=== PATIENT | male | born 1995 | race Caucasian/White ===

== ENCOUNTER 2024-06-19 10:16 | Outpatient (AMB) | payer OTHER, SELFPAY ==
[2024-06-19 10:29] VITALS: BP 132/68; PULSE 75; O2SAT 98; BMI 32.0
--- NOTE | 2024-06-19 10:29 | MHC.OFFVIS ---
Vital Signs 06/19/24 10:29 Height 5 ft 8 in Weight 210 lb 8.663 oz BMI 32.0 BP 132/68 Blood Pressure Location Rt brachial Position Sitting Pulse 75 Pulse Source Pulse Oximeter Pulse Oximetry (%) 98 Oxygen Delivery Method Room Air Intake Visit Reasons: sleep apnea Video Specialist Required: No Protocol Officer: Protocol Officer offered & declined Accompanied by: Self / Same As Patient Allergies No Known Allergies Allergy (Verified 06/19/24 10:32) Medication List - Last Reconciled 06/19/24 by Marce Licea LPN albuterol sulfate 90 mcg/actuation (Ventolin HFA) 2 puffs inhalation Q6H PRN budesonide-formoterol 80-4.5 mcg/actuation (Symbicort) 2 puffs inhalation BID clonazepam (Klonopin) 1 mg PO BID HPI Comments Details: The patient is here for pulmonary evaluation. The patient is a 28-year-old gentleman presenting for evaluation of sleep apnea and also significant asthma. Apparently the patient has been having worsening daytime drowsiness. His [place] score is elevated at over 24. The patient is working on a regular basis and is felt some daytime drowsiness. In addition to that he went on vacation with family and they documented that he had severe apneic episodes and significant snoring. He has never had a sleep study. At this point the patient will be set up for home sleep study. As far as the asthma he states that he has had asthma all his life. Much worse when he was a child. He did have allergy testing noting him to have underlying seasonal allergies. We did look at blood work, his eosinophils have been stable for many years. The patient does have a dog. He has significant allergic to cats. 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 Recently was placed on Wixela but he has not been helping. He has still been using her rescue inhaler 3 to 4 times a day and typically running out very quickly on his inhaler. He does get relief when he uses the rescue inhaler. Will go ahead and switch him over to breast treated with the hope of maximizing respiratory therapy. The patient can also use his rescue inhaler as needed but hopefully he will need as much. He can also start Singulair. He will need PFTs in addition to on chest x-ray and also blood work to assess his allergies and also potential evaluation for biologics. Will follow-up after the studies are done and if any issues arise he will call the office for an earlier assessment. [facility] Medical History (Updated 06/19/24 @ 12:37 by Dejan Vidal MD) Dyspnea Asthma Allergies Review of Systems Const Reports daytime sleepiness, Reports difficulty sleeping and Reports stops breathing during sleep Eyes Reports no additional complaints ENT Reports nasal congestion and Reports nasal discharge Card Denies chest pain and Reports dyspnea on exertion Resp Reports cough, Reports dyspnea on exertion and Reports wheezing GI Reports no additional complaints Musc Reports no additional complaints Skin/Breast Denies rash Benny/Lymph Reports no additional complaints Aller/Immun Reports wheezing Physical Exam Vital Signs: Last Vital Signs Pulse 75 06/19/24 10:29 BP 132/68 06/19/24 10:29 Pulse Ox 98 06/19/24 10:29 Oxygen Delivery Method Room Air 06/19/24 10:29 BMI result Body Mass Index 32.0 Const General: comfortable HEENT Head: Yes normocephalic Neck Neck: Yes supple Chest Chest palpation & inspection: normal inspection of the chest Resp Effort & Inspection: normal respiratory effort Auscultation: wheezes and diminished lung sounds Cardio Heart sounds: S1 normal heart sound present and S2 normal heart sound present GI Palpation (GI): Soft to palpation Skin General skin exam: no rashes or lesions noted Extrem General: Yes no clubbing, cyanosis or edema Assessment & Plan Assessment & Plan (1) LISA (obstructive sleep apnea): Code(s): G47.33 - Obstructive sleep apnea (adult) (pediatric) Category: Medical (2) Asthma: Code(s): J45.909 - Unspecified asthma, uncomplicated Category: Medical Qualifiers: Asthma complication type: uncomplicated Asthma persistence: persistent Asthma severity: moderate Qualified Code(s): J45.40 - Moderate persistent asthma, uncomplicated (3) Allergies: Code(s): T78.40XA - Allergy, unspecified, initial encounter Category: Medical Qualifiers: Encounter type: initial encounter Qualified Code(s): T78.40XA - Allergy, unspecified, initial encounter (4) Dyspnea: Code(s): R06.00 - Dyspnea, unspecified Category: Medical Qualifiers: Dyspnea type: dyspnea on exertion Qualified Code(s): R06.09 - Other forms of dyspnea Plan Start Breztri Discontinue Wixela Short-acting beta agonist as needed Start Singulair Home PSG PFTs and chest x-ray Blood work and allergy testing Follow-up in 2-3 months Orders: Orders RT home sleep study Today G47.33 - Obstructive sleep apnea (adult) (pediatric) Resp Allergy Profile Region I Today J45.909 - Unspecified asthma, uncomplicated, R06.00 - Dyspnea, unspecified, R91.1 - Solitary pulmonary nodule, T78.40XA - Allergy, unspecified, initial encounter Immunoglobulin E Today J45.909 - Unspecified asthma, uncomplicated, R06.00 - Dyspnea, unspecified, T78.40XA - Allergy, unspecified, initial encounter Erythrocyte Sedimentation Rate Today J45.909 - Unspecified asthma, uncomplicated, R06.00 - Dyspnea, unspecified, T78.40XA - Allergy, unspecified, initial encounter XR chest 2V Today J45.909 - Unspecified asthma, uncomplicated, R06.00 - Dyspnea, unspecified, T78.40XA - Allergy, unspecified, initial encounter Complete Blood Count Auto Diff Today J45.909 - Unspecified asthma, uncomplicated, R06.00 - Dyspnea, unspecified, T78.40XA - Allergy, unspecified, initial encounter PFT pulmonary function test Today J45.909 - Unspecified asthma, uncomplicated, R06.00 - Dyspnea, unspecified, T78.40XA - Allergy, unspecified, initial encounter Medications: New lqwwamsqff-ycycezkl-jbgzizqxru 160-9-4.8 mcg/actuation (Breztri Aerosphere) 2 inhalations inhalation BID 10.7 grams 11RF 30 days albuterol sulfate 2.5 mg (3 mL) inhalation Q6H PRN 180 mL 11RF shortness of breath or wheezing 30 days montelukast (Singulair) 10 mg PO BEDTIME 30 tabs 11RF 30 days J45.909 - Unspecified asthma, uncomplicated Coding Level of Care Code New Pt Level 4 (62323) Diagnoses LISA (obstructive sleep apnea) G47.33 Moderate persistent asthma without complication J45.40 Asthma complication type: uncomplicated Asthma persistence: persistent Asthma severity: moderate Allergy, initial encounter T78.40XA Encounter type: initial encounter Dyspnea on exertion R06.09 Dyspnea type: dyspnea on exertion Time Spent (min) 40
== END 2024-06-19 10:58 | disposition home or self-care (01) ==
PROVIDERS: PCP Physician Assistant Medical; Visit Provider Hospitalist
DX: G47.33 Obstructive sleep apnea (adult) (pediatric) (principal); J45.40 Moderate persistent asthma, uncomplicated; T78.40XA Allergy, unspecified, initial encounter; R06.09 Other forms of dyspnea
CPT/HCPCS: 99204

== ENCOUNTER → 2024-06-19 10:16 | Outpatient (BNVA) | payer OTHER, SELFPAY | PROVIDERS: PCP Physician Assistant Medical; Visit Provider Hospitalist ==

== ENCOUNTER → 2024-08-09 09:51 | Outpatient (REF) | payer OTHER, SELFPAY ==
[2024-08-09 09:35] VITALS: PULSE 73; O2SAT 96
--- NOTE | 2024-08-09 10:18 | PFT_ITS ---
Indication: Asthma Spirometry [FEV1 to FVC 73%; FEV1 4.04 L; FVC 5.51 L. No significant response to bronchodilators noted. ] Lung Volumes [Total lung capacity 97% predicted; expiratory reserve volume 53% predicted] Diffusion Capacity [DLCO 98% predicted] Comparisons [None] Interpretation [No definitive obstructive nor restrictive ventilatory defects identified. No significant response to bronchodilators noted. The FEF 12/25/2074 slightly decreased suggesting the possibility of asthma. Lung volumes are within normal limits in the expiratory reserve volume secondary to an elevated BMI. Diffusing capacity is within normal limits. Clinical correlation warranted.] MTDD
== END ==
LOC: HO.SL 09:51
PROVIDERS: PCP Physician Assistant Medical; Visit Provider Hospitalist
DX: G47.33 Obstructive sleep apnea (adult) (pediatric) (principal); J45.909 Unspecified asthma, uncomplicated; R06.00 Dyspnea, unspecified; T78.40XA Allergy, unspecified, initial encounter
CPT/HCPCS: 94010; 94640; 94727; 94729; 95806

== ENCOUNTER → 2024-08-09 10:18 | Outpatient (BNV) | payer OTHER, SELFPAY | PROVIDERS: PCP Physician Assistant Medical; Visit Provider Hospitalist | DX: J45.909 Unspecified asthma, uncomplicated (principal) | CPT/HCPCS: 94060; 94727; 94729 ==

== ENCOUNTER 2024-08-21 09:59 | Outpatient (AMB) | payer OTHER, SELFPAY ==
[2024-08-21 10:07] VITALS: BP 118/70; PULSE 61; O2SAT 99; BMI 31.3
--- NOTE | 2024-08-21 10:07 | A.OFFVIS_ITS ---
Vital Signs 08/21/24 10:07 Height 5 ft 8 in Weight 206 lb 2.115 oz BMI 31.3 BP 118/70 Blood Pressure Location Rt brachial Position Sitting Pulse 61 Pulse Source Pulse Oximeter Pulse Oximetry (%) 99 Oxygen Delivery Method Room Air Intake Visit Reasons: Sleep apnea Allergies No Known Allergies Allergy (Verified 08/21/24 10:10) HPI Comments Details: The patient is a 28-year-old gentleman presenting for evaluation of sleep apnea and also significant asthma. Apparently the patient has been having worsening daytime drowsiness. His [place] score is elevated at over 24. The patient is working on a regular basis and is felt some daytime drowsiness. In addition to that he went on vacation with family and they documented that he had severe apneic episodes and significant snoring. He has never had a sleep study. At this point the patient will be set up for home sleep study. As far as the asthma he states that he has had asthma all his life. Much worse when he was a child. He did have allergy testing noting him to have underlying seasonal allergies. We did look at blood work, his eosinophils have been stable for many years. The patient does have a dog. He has significant allergic to cats. 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 Recently was placed on Wixela but he has not been helping. He has still been using her rescue inhaler 3 to 4 times a day and typically running out very quickly on his inhaler. He does get relief when he uses the rescue inhaler. Will go ahead and switch him over to breast treated with the hope of maximizing respiratory therapy. The patient can also use his rescue inhaler as needed but hopefully he will need as much. He can also start Singulair. He will need PFTs in addition to on chest x-ray and also blood work to assess his allergies and also potential evaluation for biologics. Will follow-up after the studies are done and if any issues arise he will call the office for an earlier assessment. 08/21/2024 the patient is here for pulmonary follow-up visit. Overall he is doing well. He tolerated the Breztri well. Did help him. Although did not seem to be able to be filled at the pharmacy. I will go ahead and send him air supra to see this is covered better. In the meantime he continues uses allergy medicine and also started the singular which has been helpful as well. He did have pulmonary function studies which I reviewed demonstrating an FEV1 to FVC of 73%. Explained to him that this is low for his age. Inconsistent with his asthma. He did use inhalers prior to this studies therefore the bronchodilators were not very effective. In addition to that he continues to have significant daytime drowsiness. His [place] score is elevated 07/01. He has been concerned because of the daytime drowsiness and also his or girlfriend has been concerned because significant snoring and apnea. He had a home sleep study although very difficult for him to do. It was demonstrating some degree of hypoxia it is AHI was only 3.3. Although he had a hard time sleeping so therefore was not effective. Will go ahead and request an in-lab sleep study for him. [facility] Medical History (Updated 06/19/24 @ 12:37 by Dejan Vidal MD) Dyspnea Asthma Allergies Social History (Updated 08/21/24 @ 10:10 by Bhakti Quarles CMA) Patient Tobacco Use Status: Never used Tobacco Review of Systems Const Reports daytime sleepiness, Reports difficulty sleeping and Reports stops breathing during sleep Eyes Reports no additional complaints ENT Reports nasal congestion and Reports nasal discharge Card Denies chest pain and Reports dyspnea on exertion Resp Reports cough, Reports dyspnea on exertion and Reports wheezing GI Reports no additional complaints Musc Reports no additional complaints Skin/Breast Denies rash Benny/Lymph Reports no additional complaints Aller/Immun Reports wheezing Physical Exam Vital Signs: Last Vital Signs Pulse 61 08/21/24 10:07 BP 118/70 08/21/24 10:07 Pulse Ox 99 08/21/24 10:07 Oxygen Delivery Method Room Air 08/21/24 10:07 BMI result Body Mass Index 31.3 Const General: comfortable HEENT Head: Yes normocephalic Neck Neck: Yes supple Chest Chest palpation & inspection: normal inspection of the chest Resp Effort & Inspection: normal respiratory effort Auscultation: wheezes and diminished lung sounds Cardio Heart sounds: S1 normal heart sound present and S2 normal heart sound present GI Palpation (GI): Soft to palpation Skin General skin exam: no rashes or lesions noted Extrem General: Yes no clubbing, cyanosis or edema Assessment & Plan Assessment & Plan (1) LISA (obstructive sleep apnea): Code(s): G47.33 - Obstructive sleep apnea (adult) (pediatric) Category: Medical (2) Asthma: Code(s): J45.909 - Unspecified asthma, uncomplicated Category: Medical Qualifiers: Asthma complication type: uncomplicated Asthma persistence: persistent Asthma severity: moderate Qualified Code(s): J45.40 - Moderate persistent asthma, uncomplicated (3) Allergies: Code(s): T78.40XA - Allergy, unspecified, initial encounter Category: Medical Qualifiers: Encounter type: initial encounter Qualified Code(s): T78.40XA - Allergy, unspecified, initial encounter (4) Dyspnea: Code(s): R06.00 - Dyspnea, unspecified Category: Medical Qualifiers: Dyspnea type: dyspnea on exertion Qualified Code(s): R06.09 - Other forms of dyspnea Plan stop Breztri start Airsupra Short-acting beta agonist as needed Start Singulair Home PSG non diagnostic, will request an in-lab PSG Follow-up in 4 months Orders: Orders RT PSG in-lab sleep study Today G47.33 - Obstructive sleep apnea (adult) (pediatric) Medications: New albuterol-budesonide 90-80 mcg/actuation (Airsupra) 2 inhalations inhalation BID PRN 10.7 grams 11RF shortness of breath 30 days Coding Level of Care Code Est Pt Level 4 (49623) Diagnoses LISA (obstructive sleep apnea) G47.33 Moderate persistent asthma without complication J45.40 Asthma complication type: uncomplicated Asthma persistence: persistent Asthma severity: moderate Allergy, initial encounter T78.40XA Encounter type: initial encounter Dyspnea on exertion R06.09 Dyspnea type: dyspnea on exertion Time Spent (min) 17
== END 2024-08-21 10:33 | disposition home or self-care (01) ==
PROVIDERS: PCP Physician Assistant Medical; Visit Provider Hospitalist
DX: G47.33 Obstructive sleep apnea (adult) (pediatric) (principal); J45.40 Moderate persistent asthma, uncomplicated; T78.40XA Allergy, unspecified, initial encounter; R06.09 Other forms of dyspnea
CPT/HCPCS: 99214

== ENCOUNTER → 2024-08-21 09:59 | Outpatient (BNVA) | payer OTHER, SELFPAY | PROVIDERS: PCP Physician Assistant Medical; Visit Provider Hospitalist | DX: G47.33 Obstructive sleep apnea (adult) (pediatric) (principal); J45.909 Unspecified asthma, uncomplicated ==

== ENCOUNTER → 2024-09-14 19:30 | Outpatient (REF) | payer OTHER, SELFPAY ==
--- OUTSIDE RECORDS SUMMARY | 2024-09-14 19:58 | XMS_ITS | Clinical Summary ---
Author Organization [facility] Address [address] [place] [address] Care Team Providers Care Engraving Plate Maker Name Role Phone Anthony Hilton MD Primary Care Provider [phone] Allergies No known active allergies Medications Medication Sig Dispensed Refills Start Date End Date Status PROAIR HFA 108 (90 Base) MCG/ACT inhaler INHALE 2 PUFFS PO Q 6 H 4 11/11/2017 Active clonazePAM (KLONOPIN) 1 MG tablet TK 1 T PO TID 2 10/28/2017 Active FLUoxetine (PROZAC) 20 MG capsule 11 10/12/2017 Active Active Problems No known active problems Social History Tobacco Use Types Packs/Day Years Used Date Smoking Tobacco: Never Smokeless Tobacco: Never Alcohol Use Standard Drinks/Week Comments Yes 0 (1 standard drink = 0.6 oz pur e alcohol) Sex and Gender Information Value Date Recorded Sex Assigned at Not on file Gender Identity Not on file Sexual Orientation Not on file Job Start Date Occupation Industry Not on file Not on file Not on file Plan of Treatment Health Maintenance Due Date Last Done Comments Hepatitis B Vaccines (1 of 3 - 3-dose series) 1995 Hepatitis C Screening 1995 COVID-19 Vaccine (#1) 05/03/1996 Depression Screening 2007 Preventative Health Evaluation 10/31/2013 DTap / Tdap / Td (1 - Tdap) 10/31/2014 Influenza Vaccine (#1) 2024 Pneumococcal Vaccine Aged Out No long er eligible based on patient's age to complete this topic RSV Ped < 20 months Aged Out No longe r eligible based on patient's age to complete this topic Care Teams Engraving Plate Maker Relationship Specialty Start Date End Date Anthony Hilton MD [address] [place] [address] [address] [place] [address] PCP - General Internal Medicine 11/15/17
== END ==
LOC: HO.SL 19:30
PROVIDERS: PCP Physician Assistant Medical; Visit Provider Hospitalist
DX: G47.33 Obstructive sleep apnea (adult) (pediatric) (principal)
CPT/HCPCS: 95810

== ENCOUNTER → 2024-09-14 20:00 | Outpatient (BNV) | payer OTHER, SELFPAY | PROVIDERS: PCP Physician Assistant Medical; Visit Provider Internal Medicine | DX: G47.33 Obstructive sleep apnea (adult) (pediatric) (principal) | CPT/HCPCS: 95810 ==

== ENCOUNTER 2025-01-15 09:44 | Outpatient (AMB) | payer OTHER, SELFPAY ==
[2025-01-15 09:52] VITALS: BP 130/76; PULSE 100; O2SAT 99; BMI 30.7
--- NOTE | 2025-01-15 09:52 | A.OFFVIS_ITS ---
Vital Signs 01/15/25 09:52 Height 5 ft 8 in Weight 201 lb 11.567 oz BMI 30.7 BP 130/76 Blood Pressure Location Lt brachial Position Sitting Pulse 100 Pulse Source Pulse Oximeter Pulse Oximetry (%) 99 Oxygen Delivery Method Room Air Intake Visit Reasons: Sleep apnea Director Pharmacovigilance Required: No Accompanied by: Self / Same As Patient Allergies No Known Allergies Allergy (Verified 01/15/25 09:54) HPI Comments Details: The patient is a 29-year-old gentleman presenting for evaluation of sleep apnea and also significant asthma. Apparently the patient has been having worsening daytime drowsiness. His [place] score is elevated at over 24. The patient is working on a regular basis and is felt some daytime drowsiness. In addition to that he went on vacation with family and they documented that he had severe apneic episodes and significant snoring. He has never had a sleep study. At this point the patient will be set up for home sleep study. As far as the asthma he states that he has had asthma all his life. Much worse when he was a child. He did have allergy testing noting him to have underlying seasonal allergies. We did look at blood work, his eosinophils have been stable for many years. The patient does have a dog. He has significant allergic to cats. 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 Recently was placed on Wixela but he has not been helping. He has still been using her rescue inhaler 3 to 4 times a day and typically running out very quickly on his inhaler. He does get relief when he uses the rescue inhaler. Will go ahead and switch him over to breast treated with the hope of maximizing respiratory therapy. The patient can also use his rescue inhaler as needed but hopefully he will need as much. He can also start Singulair. He will need PFTs in addition to on chest x-ray and also blood work to assess his allergies and also potential evaluation for biologics. Will follow-up after the studies are done and if any issues arise he will call the office for an earlier assessment. 08/21/2024 the patient is here for pulmonary follow-up visit. Overall he is doing well. He tolerated the Breztri well. Did help him. Although did not seem to be able to be filled at the pharmacy. I will go ahead and send him air supra to see this is covered better. In the meantime he continues uses allergy medicine and also started the singular which has been helpful as well. He did have pulmonary function studies which I reviewed demonstrating an FEV1 to FVC of 73%. Explained to him that this is low for his age. Inconsistent with his asthma. He did use inhalers prior to this studies therefore the bronchodilators were not very effective. In addition to that he continues to have significant daytime drowsiness. His [place] score is elevated 07/01. He has been concerned because of the daytime drowsiness and also his or girlfriend has been concerned because significant snoring and apnea. He had a home sleep study although very difficult for him to do. It was demonstrating some degree of hypoxia it is AHI was only 3.3. Although he had a hard time sleeping so therefore was not effective. Will go ahead and request an in-lab sleep study for him. 01/15/2025 the patient is here for pulmonary follow-up visit. The patient still struggling with the not feeling well in the morning. The patient did have a h ome sleep study them followed with an in-lab sleep study demonstrating no evidence of any sleep apnea which is reassuring. Although he still has nocturnal hypoxia. He does have underlying obstructive airway disease and asthma. Therefore, we did request an overnight oximetry to be done by his [employer] but he has yet to hear anything. We did finally called the [employer] and the going to be doing it as soon as possible. We need to reconfirm that he is hypoxic at night and then at that point order oxygen for him. As far as his medication he was not able to get his inhalers so therefore he is having increased wheezing right now. Will go ahead and optimize his respiratory therapy by sending him Symbicort. That he can use twice a day. Also should restart the Singulair that he has at home. [facility] Medical History (Updated 10/03/24 @ 07:59 by Dejan Vidal MD) Nocturnal hypoxia Dyspnea Asthma Allergies Social History Patient Tobacco Use Status: Never used Tobacco Review of Systems Const Reports daytime sleepiness, Reports difficulty sleeping and Reports stops breathing during sleep Eyes Reports no additional complaints ENT Reports nasal congestion and Reports nasal discharge Card Denies chest pain and Reports dyspnea on exertion Resp Reports cough, Reports dyspnea on exertion and Reports wheezing GI Reports no additional complaints Musc Reports no additional complaints Skin/Breast Denies rash Benny/Lymph Reports no additional complaints Aller/Immun Reports wheezing Physical Exam Vital Signs: Last Vital Signs Pulse 100 01/15/25 09:52 BP 130/76 01/15/25 09:52 Pulse Ox 99 01/15/25 09:52 Oxygen Delivery Method Room Air 01/15/25 09:52 BMI result Body Mass Index 30.7 Const General: comfortable HEENT Head: Yes normocephalic Neck Neck: Yes supple Chest Chest palpation & inspection: normal inspection of the chest Resp Effort & Inspection: normal respiratory effort Auscultation: wheezes and diminished lung sounds Cardio Heart sounds: S1 normal heart sound present and S2 normal heart sound present GI Palpation (GI): Soft to palpation Skin General skin exam: no rashes or lesions noted Extrem General: Yes no clubbing, cyanosis or edema Assessment & Plan Assessment & Plan (1) Asthma: Code(s): J45.909 - Unspecified asthma, uncomplicated Category: Medical Qualifiers: Asthma complication type: uncomplicated Asthma persistence: persistent Asthma severity: moderate Qualified Code(s): J45.40 - Moderate persistent asthma, uncomplicated (2) Allergies: Code(s): T78.40XA - Allergy, unspecified, initial encounter Category: Medical Qualifiers: Encounter type: initial encounter Qualified Code(s): T78.40XA - Allergy, unspecified, initial encounter (3) Dyspnea: Code(s): R06.00 - Dyspnea, unspecified Category: Medical Qualifiers: Dyspnea type: dyspnea on exertion Qualified Code(s): R06.09 - Other forms of dyspnea Plan Short-acting beta agonist as needed start Symbicort Singulair, consider seasonally No LISA Overnight oximetry on RA ([facility] [place]) Follow-up in 4 months Orders: Orders Overnight Pulse Oximetry Today J45.40 - Moderate persistent asthma, uncomplicated Medications: New budesonide-formoterol 160-4.5 mcg/actuation (Symbicort) 2 puffs inhalation BID 10.2 grams 11RF 30 days J44.89 - Other specified chronic obstructive pulmonary disease Coding Level of Care Code Est Pt Level 4 (42000) Diagnoses Moderate persistent asthma without complication J45.40 Asthma complication type: uncomplicated Asthma persistence: persistent Asthma severity: moderate Allergy, initial encounter T78.40XA Encounter type: initial encounter Dyspnea on exertion R06.09 Dyspnea type: dyspnea on exertion Time Spent (min) 17
--- OUTSIDE RECORDS SUMMARY | 2025-01-15 10:51 | XMS_ITS | Clinical Summary ---
Author Organization [facility] it Address [id number] [place] [id number] Care Team Providers Care Ticker Installer Name Role Phone Anthony Hilton MD Primary Care Provider [phone] Social History Tobacco Use Types Packs/Day Years Used Date Smoking Tobacco: Never Assessed Sex and Gender Information Value Date Recorded Sex Assigned at Not on file Legal Sex Male 1:51 AM EST Gender Identity Not on file Sexual Orientation Not on file Plan of Treatment Health Maintenance Due Date Last Done Comments DTaP,Tdap,and Td Vaccines (1 - Tdap) 10/31/2014 Hepatitis B Vaccines (1 of 3 - 19+ 3-dose series) 10/31/2014 Depression Screening 07/11/2022 HIV Screening 07/11/2022 Hepatitis C Screening 07/11/2022 Social Influencers of Health Screening 07/11/2022 COVID-19 Vaccine (2023-2 5 season) 2024 Influenza Vaccine (Season Ended) 2025 HIB Vaccines Aged Out No longer eligi ble based on patient's age to complete this topic HPV Vaccines Aged Out No longer eligi ble based on patient's age to complete this topic Hepatitis A Vaccines Aged Out No long er eligible based on patient's age to complete this topic IPV Vaccines Aged Out No longer eligi ble based on patient's age to complete this topic MMR Vaccines Aged Out No longer eligi ble based on patient's age to complete this topic Meningococcal ACWY Vaccine Aged Out N o longer eligible based on patient's age to complete this topic Meningococcal B Vaccine Aged Out No l onger eligible based on patient's age to complete this topic Pneumococcal Vaccine: Pediat rics (0 to 5 Years) and At-Risk Patients (6 to 64 Years) Aged Out No longer eligible b ased on patient's age to complete this topic RSV Immunization Patients Un leonor 20 months Aged Out No longer eligible b ased on patient's age to complete this topic Varicella Vaccines Aged Out No longer eligible based on patient's age to complete this topic Care Teams Ticker Installer Relationship Specialty Start Date End Date Anthony Hilton MD [facility] [address] [facility] [address] [place] [address] PCP - General Internal Medicine 11/15/17
== END 2025-01-15 10:28 | disposition home or self-care (01) ==
LOC: HO.HPS 09:45
PROVIDERS: PCP Physician Assistant Medical; Visit Provider Hospitalist
DX: J45.40 Moderate persistent asthma, uncomplicated (principal); T78.40XA Allergy, unspecified, initial encounter; R06.09 Other forms of dyspnea
CPT/HCPCS: 99214

== ENCOUNTER → 2025-01-15 09:44 | Outpatient (BNVA) | payer OTHER, SELFPAY | PROVIDERS: PCP Physician Assistant Medical; Visit Provider Hospitalist | DX: G47.33 Obstructive sleep apnea (adult) (pediatric) (principal); J45.909 Unspecified asthma, uncomplicated ==